=== PATIENT | female | born 1995 | race Caucasian/White ===

== ENCOUNTER → 2024-10-10 | Outpatient (REF) | payer BC | LOC: M SFHCLERA 10:08 | PROVIDERS: ATTEND Student in an Organized Health Care Education/Training Program | DX: Z53.9 Procedure and treatment not carried out, unspecified reason (principal) ==

== ENCOUNTER → 2024-12-05 | Outpatient (REF) | payer BC ==
[~2024-12-05] MED LIST: BIOT10002 PO; OYST500C PO; VITA1TAB82 PO
[2024-12-09 14:38] LABS: HPV APTIMA Not Detected (Not Detected)
== END ==
LOC: M SFHCLERA 17:43
PROVIDERS: ATTEND Student in an Organized Health Care Education/Training Program
DX: Z01.419 Encounter for gynecological examination (general) (routine) without abnormal findings (principal)
CPT/HCPCS: 87624; G0123

== ENCOUNTER 2025-01-23 08:53 | Day surgery (SDC) | payer BC ==
[~2025-01-23] VITALS: Ht 175.3 cm; Wt 70.9 kg
[2025-01-23] MEDS ORDERED: LIDOCAINE 2% 100 MG/5 ML SDV (FOR ANES.) As Ordered ONE (09:58)
[2025-01-23 10:30] VITALS: BP 116/78; TEMP 97.6; O2SAT 97
== END 2025-01-23 10:35 | disposition home or self-care (01) ==
LOC: M OPP 08:53
PROVIDERS: ATTEND Surgery
DX: R13.10 Dysphagia, unspecified (principal); Z88.1 Allergy status to other antibiotic agents; Z91.02 Food additives allergy status; Z79.899 Other long term (current) drug therapy
CPT/HCPCS: 43239; 88305; J3010